=== PATIENT | male | born 1985 | race Two or more races ===

== ENCOUNTER 2023-04-26 20:09 | Emergency (ER) | payer OTHER ==
[~2023-04-26] VITALS: Ht 175.3 cm; Wt 122.0 kg
[2023-04-26] MEDS: LORazepam 2MG/ML-1ML VIAL IV ONE ×2 (21:15→22:48)
[2023-04-26] MEDS ORDERED: MORPHINE SULFATE 4 MG/ML SYR/VIAL IV ONE (21:15)
[2023-04-26] MEDS ORDERED: SODIUM CHLORIDE 0.9% 1,000 ML IVB ONE ×2 (21:15)
[2023-04-26] MEDS ORDERED: ONDANSETRON HCL 4 MG/2 ML VIAL IV ONE (21:15)
[2023-04-26] MEDS ORDERED: TETANUS-DIPTH-ACEL PERTUSSIS 0.5ML SYR Tdap IM ONE (21:15)
[2023-04-26 21:55] LABS: Basophils # (auto) 0 10 ^3/uL (0-0.2); Basophils % (auto) 0.3 % (0.0-2.0); Eosinophils # (auto) 0.1 10 ^3/uL (0-0.8); Eosinophils % (auto) 0.7 % (0.0-7.0); Hematocrit 45.1 % (41.0-53.0); Hemoglobin 14.9 g/dL (13.5-17.5); Lymphocytes # (auto) 1.6 10 ^3/uL (0.4-5.4); Lymphocytes % (auto) 21.2 % (10.0-50.0); Mean Corpuscular Hemoglobin 30.7 pg (28.0-32.0); Mean Corpuscular Hgb Conc. 33.1 g/dL (32.0-36.0); Mean Corpuscular Volume 92.7 fL (80.0-100.0); Monocytes # (auto) 0.5 10 ^3/uL (0-1.3); Neutrophils # (auto) 5.3 10 ^3/uL (1.6-8.6); Neutrophils % (auto) 70.8 % (37.0-80.0); Nucleated Red Blood Cells % 0.1 %; Red Blood Cells 4.86 10^6/uL (4.5-5.90); Red Cell Distribution Width 13.4 % (11.8-14.3); White Blood Cell 7.5 10^3/uL (4.4-10.8)
[2023-04-26 22:16] LABS: INR 1.11 (0.9-1.15); Partial Thromboplastin Time 23.6 SEC (24.5-34.5); Prothrombin Time 11.6 sec (9.3-11.8)
[2023-04-26 23:00] VITALS: PULSE 95; RESP 16; TEMP 98.5; O2SAT 96
[2023-04-26 23:04] LABS: Alanine Aminotransferase 42 U/L (7-40); Albumin 4.8 g/dL (3.2-4.8); Alkaline Phosphatase 120 U/L (46-116); Anion Gap 7 (5-15); Aspartate Aminotransferase 35 U/L (13-40); BUN/Creatinine Ratio 13.2 (10.0-20.0); Bilirubin, Total 0.3 mg/dL (0.2-1.0); Blood Urea Nitrogen 10 mg/dL (9-23); Calcium 9.8 mg/dL (8.5-10.1); Carbon Dioxide 26 mmol/L (20-30); Chloride 106 mmol/L (98-107); Glucose 98 mg/dL (74-106); Potassium 4.1 mmol/L (3.5-5.1); Sodium 139 mmol/L (136-145); Total Protein 8.6 g/dL (5.7-8.2)
[2023-04-26 23:16] LABS: Blood Alcohol 4.1 mg/dL (<10); Magnesium 2.1 mg/dL (1.6-2.6)
[2023-04-26] MEDS ORDERED: IOHEXOL 350 MG/ML 100ML IJ ONE (23:19)
[2023-04-26 23:45] LABS: Urine WBC None Seen /hpf (0 - 3)
[2023-04-26 23:54] LABS: Urine Bacteria NONE SEEN /hpf (None Seen); Urine Blood Negative /uL (Negative); Urine Clarity Clear (Clear); Urine Color Colorless (Yellow); Urine Protein, UAD Negative (Negative); Urine Urobilinogen Normal (Negative)
[2023-04-27 00:10] LABS: Amphetamine Screen, Urine Neg (NEGATIVE); Barbiturate Scree,Urine Neg (NEGATIVE); Benzodiazephine Screen, Urine Neg (NEGATIVE); Cocaine Screen, Urine Neg (NEGATIVE)
[2023-04-27 00:11] LABS: Cannabinoid Screen, Urine Neg (NEGATIVE); Opiate Scree,Urine Neg (NEGATIVE); Phencyclidine Screen, Urine Neg (NEGATIVE)
[2023-04-27] MEDS ORDERED: PHENYTOIN SODIUM 100 MG CAP PO ONE ×3 (03:00→03:47)
[2023-04-27] MEDS ORDERED: MORPHINE SULFATE 4 MG/ML SYR/VIAL IV ONE (03:15)
[2023-04-27] MEDS ORDERED: ONDANSETRON HCL 4 MG/2 ML VIAL IV ONE (03:15)
[2023-04-27 03:25] VITALS: O2SAT 98
[2023-04-27 03:28] VITALS: BP 114/65; PULSE 88; RESP 18
== END 2023-04-27 14:30 ==
LOC: ER 20:09 → EEVIPCON 20:09 → ER 04-27 03:27
DX: R56.9 Unspecified convulsions (principal); Z88.0 Allergy status to penicillin; Z88.6 Allergy status to analgesic agent; Z79.899 Other long term (current) drug therapy; Z79.01 Long term (current) use of anticoagulants
CPT/HCPCS: 36415; 70450; 71045; 71260; 74177; 80053; 80185; 80307; 80320; 81001; 82550; 83605; 83690; 83735; 84484; 85025; 85610; 85730; 96361; 96374; 96375; 96376; 99285; J2270; J2405; J7030; Q9967

== ENCOUNTER 2023-05-12 19:41 | Emergency (ER) | payer OTHER ==
[~2023-05-12] VITALS: Ht 180.3 cm; Wt 127.1 kg
[2023-05-12 20:00] VITALS: TEMP 98.3
[2023-05-12] MEDS ORDERED: HYDROmorphone HCL 2 MG/ML VL/or syr IM ONE ×2 (20:15→23:30)
[2023-05-12] MEDS ORDERED: PHENYTOIN SODIUM 100 MG CAP PO ONE (20:15)
[2023-05-12] MEDS ORDERED: ONDANSETRON ODT 4 MG TAB PO ONE (20:15)
[2023-05-12 20:30] VITALS: PULSE 107; RESP 20; O2SAT 96
[2023-05-12 21:54] LABS: Basophils # (auto) 0 10 ^3/uL (0-0.2); Basophils % (auto) 0.5 % (0.0-2.0); Eosinophils # (auto) 0.1 10 ^3/uL (0-0.8); Hematocrit 38.3 % (41.0-53.0); Hemoglobin 13.1 g/dL (13.5-17.5); Lymphocytes # (auto) 1.6 10 ^3/uL (0.4-5.4); Lymphocytes % (auto) 30.3 % (10.0-50.0); Mean Corpuscular Hemoglobin 30.3 pg (28.0-32.0); Mean Corpuscular Hgb Conc. 34.1 g/dL (32.0-36.0); Monocytes # (auto) 0.5 10 ^3/uL (0-1.3); Monocytes % (auto) 8.5 % (0.0-12.0); Neutrophils # (auto) 3.1 10 ^3/uL (1.6-8.6); Neutrophils % (auto) 58.7 % (37.0-80.0); Nucleated Red Blood Cells % 0.2 %; Red Blood Cells 4.31 10^6/uL (4.5-5.90); Red Cell Distribution Width 13.5 % (11.8-14.3); White Blood Cell 5.4 10^3/uL (4.4-10.8)
[2023-05-12 22:05] LABS: Alanine Aminotransferase 42 U/L (7-40); Albumin 4.4 g/dL (3.2-4.8); Alkaline Phosphatase 92 U/L (46-116); Anion Gap 7 (5-15); Aspartate Aminotransferase 32 U/L (13-40); BUN/Creatinine Ratio 11.4 (10.0-20.0); Blood Urea Nitrogen 9 mg/dL (9-23); Calcium 9.2 mg/dL (8.7-10.4); Carbon Dioxide 26 mmol/L (20-30); Chloride 106 mmol/L (98-107); Glucose 88 mg/dL (74-106); Lipase 34 U/L (12-53); Potassium 3.6 mmol/L (3.5-5.1); Sodium 139 mmol/L (136-145)
[2023-05-12 22:06] LABS: Bilirubin, Total 0.3 mg/dL (0.2-1.0); Total Protein 7.8 g/dL (5.7-8.2)
[2023-05-12 23:44] LABS: Urine Bacteria NONE SEEN /hpf (None Seen); Urine Blood Negative /uL (Negative); Urine Clarity Clear (Clear); Urine Color Colorless (Yellow); Urine Protein, UAD Negative (Negative); Urine Urobilinogen Normal (Negative); Urine WBC <1 /hpf (0 - 3); Urine pH 7.5 (5.0-8.0)
[2023-05-12 23:47] LABS: Amphetamine Screen, Urine Neg (NEGATIVE); Barbiturate Scree,Urine Neg (NEGATIVE); Benzodiazephine Screen, Urine Neg (NEGATIVE); Cannabinoid Screen, Urine Neg (NEGATIVE); Cocaine Screen, Urine Neg (NEGATIVE); Opiate Scree,Urine Neg (NEGATIVE); Phencyclidine Screen, Urine Neg (NEGATIVE)
[2023-05-13 01:18] VITALS: BP 96/46; PULSE 90; RESP 13; O2SAT 96
== END 2023-05-13 00:15 | disposition home or self-care (01) ==
LOC: EDBD 19:41 → EEVIPCON 19:41 → ER 19:41
DX: T18.128A Food in esophagus causing other injury, initial encounter (principal); R10.84 Generalized abdominal pain; R56.9 Unspecified convulsions; Z88.0 Allergy status to penicillin; Z88.8 Allergy status to other drugs, medicaments and biological substances; X58.XXXA Exposure to other specified factors, initial encounter; Y93.89 Activity, other specified; Y92.89 Other specified places as the place of occurrence of the external cause; Y99.8 Other external cause status
CPT/HCPCS: 36415; 70450; 71250; 72125; 73000; 74018; 74176; 80053; 80185; 80307; 81001; 83690; 85025; 96372; 99285; J1170; Q0162